=== PATIENT | male | born 1940 | race Caucasian/White ===

== ENCOUNTER 2018-12-16 12:56 | Inpatient (IN) | payer OTHER ==
[~2018-12-16] VITALS: Ht 175.3 cm; Wt 99.8 kg
[~2018-12-16 12:56] MED LIST: ALLO100T PO; ASPI-1155 PO; ATEN50TA PO; COLC0.6T67 PO; HYDR-1189 PO; LISI30TA36 PO; LISI40TA4 PO; NAPR250T PO; SIME125C PO; TRAM50TA92 PO
[2018-12-16 13:07] VITALS: BP_SYST 135
--- NOTE | 2018-12-16 14:07 | NUR ---
Placed in room 6. Placed on classroom monitor, blood pressure machine and pulse oximeter. To gown for exam. Side rails up. Report given to Karen PRESSLEY.
--- NOTE | 2018-12-16 14:08 | NUR ---
Patient presented to ER with fever, body aches and s/p fall. Patient alert and oriented, skin pink, respirations equal bilat, temp 101.1, c/o body aches, pain 8/10, denies N/V/D. Patient states he had a fall today and had difficulty gettin to standing position, patient denies hittin head, denies KO.
[2018-12-16 14:47] LABS: BILIRUBIN,URINE NEGATIVE (NEGATIVE); BLOOD, URINE 3+ (NEGATIVE); CLARITY/URINE CLEAR (CLEAR); COLOR,URINE YELLOW (YELLOW); GLUCOSE,URINE NEGATIVE (NEGATIVE); KETONES,URINE NEGATIVE (NEGATIVE); LEUKOCYTE ESTERASE ,URINE NEGATIVE (NEGATIVE); NITRITE, URINE NEGATIVE (NEGATIVE); PH,URINE 5.5 (5.0-8.0); PROTEIN URINE 2+ (NEGATIVE); UROBILINOGEN,URINE 0.2 (0.2-1.0)
[2018-12-16 14:56] LABS: BACTERIA,URINE FEW /HPF (None Seen); RBC,URINE 0-3 /HPF (0-3); WBC,URINE 0-3 /HPF (0-3)
[2018-12-16 14:57] LABS: MUCUS,URINE None Seen /LPF (None Seen)
--- NOTE | 2018-12-16 15:10 | NUR ---
ER Dr. Moyer at bedside examining patient.
--- NOTE | 2018-12-16 15:10 | NUR ---
Patient to Radiology with radiology staff
[2018-12-16 15:16] LABS: BASOPHILS # (AUTO) 0.1 K/uL (0.0-0.2); BASOPHILS % (AUTO) 0.5 % (0.0-2.0); EOSINOPHILS % (AUTO) 0.1 % (0.0-4.0); HEMATOCRIT 35.2 % (36-54); HEMOGLOBIN 11.9 g/dL (14.0-18.0); LYMPHOCYTES # (AUTO) 0.7 K/uL (1.0-5.5); LYMPHOCYTES % (AUTO) 6.5 % (20.5-51.5); MEAN CORPUSCULAR HEMOGLOBIN 33 pg (27-31); MEAN CORPUSCULAR HGB CONC 34 % (32-36); MEAN CORPUSCULAR VOLUME 98 fL (79.0-98.0); MONOCYTES # (AUTO) 0.6 K/uL (0.0-1.0); MONOCYTES % (AUTO) 5.9 % (1.7-9.3); NEUTROPHILS # (AUTO) 9.2 K/uL (1.8-7.7); PLATELET COUNT (AUTO) 173 K/uL (130-430); RED BLOOD CELL COUNT(AUTO) 3.61 MIL/uL (4.2-6.2); RED CELL DISTRIBUTION WIDTH 17.6 % (9.0-15.0); WHITE BLOOD COUNT (AUTO) 10.5 K/uL (4.8-10.8)
[2018-12-16 15:26] LABS: ALANINE AMINOTRANSFERASE 43 U/L (12-78); ALBUMIN 3.3 g/dL (3.4-4.8); ASPARTATE AMINOTRANSFERASE 200 U/L (10-37); CALCIUM 8.1 mg/dL (8.4-11.0); CHLORIDE 91 mmol/L (98-107); CREATININE 1.36 mg/dL (0.55-1.30); GLUCOSE 115 mg/dL (70-99); SODIUM SERUM 129 mmol/L (136-145); TOTAL BILIRUBIN 0.4 mg/dL (0.0-1.0); UREA NITROGEN, BLOOD 12 mg/dL (8-21)
[2018-12-16 15:38] LABS: ANION GAP 15 (5-15)
[2018-12-16] MEDS ORDERED: NACL 0.9% 2,000 ML IV ONE (16:30)
--- NOTE | 2018-12-16 16:30 | NUR ---
Patient awake & alert sitting in [facility], at bedside
[2018-12-16] MEDS ORDERED: KCL 40 mEq in 100 mL (PREMIX) 100 ML IV ONE (16:45)
[2018-12-16] MEDS ORDERED: KCL 20 mEq in 100 mL (PREMIX) 200 ML IV ONE (17:07)
--- NOTE | 2018-12-16 17:10 | NUR ---
ER Dr. Moyer at bedside examining patient.
[2018-12-16] MEDS ORDERED: KCL 20 mEq in 100 mL (PREMIX) 100 ML IV ONE (17:15)
--- NOTE | 2018-12-16 17:22 | NUR ---
ER at bedside discussing admission with patient.
--- NOTE | 2018-12-16 17:25 | NUR ---
Patient will be admitted to care of Dr. Meyers. Admitted to telemetry unit. HUAN Braxton to assign room. Belongings list completed. Summary report printed. Report will be given at bedside.
--- NOTE | 2018-12-16 17:35 | NUR ---
Medication reconciliation completed with information provided by Patient and . Any prior medication reconciliation on file was reviewed and corrected. will bring in the 2 medications patient taking.
--- NOTE | 2018-12-16 17:52 | NUR ---
ADMISSION NOTE Received patient from ER via jenna, received report from CINDY PRESSLEY. Patient admitted with diagnosis of HYPOKALEMIA/WEAKNESS. Patient oriented to hospital routine, call light, toileting and safety-patient verbalized understanding.
[2018-12-16 18:08] VITALS: BP_SYST 152
--- NOTE | 2018-12-16 18:20 | NUR ---
Physical assessment done and recorded to flow sheet , discussed to patient and disease process, plan of care , safety, verbalized understanding.
[2018-12-16] MEDS ORDERED: ALBUTEROL SULFATE 0.083% 2.5 MG/3 ML VIAL.NEB INH PRN (18:45)
[2018-12-16] MEDS ORDERED: ONDANSETRON HCL 4 MG/2 ML VIAL IVP PRN (18:45)
[2018-12-16] MEDS ORDERED: NACL 0.9% 1,000 ML IV SCH (19:00)
--- NOTE | 2018-12-16 19:10 | NUR ---
Opening notes Patient resting in bed. No signs of distress noted. Breathing even and unlabored. IV patent and intact. No needs at this time. Call light with the patient. Safety precautions in place. Family at bedside.
[2018-12-16 20:00] VITALS: BP_SYST 153
[2018-12-16] MEDS ORDERED: cefTRIAXone 1 GM IVPB PREMIX 50 ML IV SCH (20:00)
--- NOTE | 2018-12-16 20:04 | NUR ---
Patient to radiology via wheelchair. Patient in stable condition.
[2018-12-16] MEDS ORDERED: AZITHROMYCIN 500 MG/VIAL (ZITHROMAX) IV ONE (20:11)
[2018-12-16] MEDS ORDERED: cefTRIAXone 1 GM IVPB PREMIX 50 ML IV ONE (20:11)
[2018-12-16] MEDS: ACETAMINOPHEN 325 MG TABLET PO PRN (20:41)
[2018-12-16] MEDS: AZITHROMYCIN 500 MG in NS 250 ML IV SCH (20:42)
--- NOTE | 2018-12-16 20:45 | NUR ---
Tylenol given for Temp of 101.2. Educated the action and side effects of medications. Patient tolerated well.
[2018-12-16 21:27] VITALS: BP_SYST 152
[2018-12-16 21:41] VITALS: BP_SYST 151
--- NOTE | 2018-12-16 22:00 | NUR ---
Patient resting comfortably in bed. Temp is now 99.7. Cooling measures applied.
[2018-12-16 23:15] LABS: ANION GAP 10 (5-15); CALCIUM 7.5 mg/dL (8.4-11.0); CHLORIDE 100 mmol/L (98-107); CREATININE 0.92 mg/dL (0.55-1.30); GLUCOSE 112 mg/dL (70-99); SODIUM SERUM 131 mmol/L (136-145); UREA NITROGEN, BLOOD 9 mg/dL (8-21)
[2018-12-16 23:19] LABS: POTASSIUM 2.8 mmol/L (3.5-5.1)
[2018-12-16] MEDS ORDERED: POTASSIUM CHLORIDE 40 MEQ in NS 250 ML IV ONE (23:45)
[2018-12-16] MEDS ORDERED: MAGNESIUM SULFATE 50 ML IV ONE (23:45)
[2018-12-17 00:26] VITALS: BP_SYST 141
--- NOTE | 2018-12-17 00:30 | NUR ---
Sleeping No signs of distress noted. Breathing even and unlabored. IV patent and intact. Safety precautions in place. Emptied 400 ml from urinal.
[2018-12-17] MEDS ORDERED: KCL 20 mEq in 100 mL (PREMIX) 100 ML IV ONE ×2 (02:00)
--- NOTE | 2018-12-17 02:22 | NUR ---
Sleeping Patient sleeping. Easily awake. Emptied 400 ml from urinal. No other needs. Call light with the patient. Safety precautions in place.
--- NOTE | 2018-12-17 05:09 | NUR ---
IV reinserted into left forearm 22 gauge. IV flushes well. Resumed K rider.
--- NOTE | 2018-12-17 06:40 | NUR ---
Closing notes Patient asleep in bed. No signs of distress noted. Breathing is even and unlabored. IV is patent and intact. All needs met throughout the shift. Call light with the patient. Safety precautions in place. Will endorse care to day shift RN.
--- NOTE | 2018-12-17 07:50 | NUR ---
INITIAL NOTE RECEIVED PT IN BED, NO S/S OF DISTRESS OR SOB NOTED, PT HAS NO C/O PAIN AT THIS TIME, PT IN STABLE CONDITION, PT AAOX4, VERBAL. IV CATHETERS PATENT, NO SIGNS OF INFECTION OR INFILTRATION NOTED, SALINE LOCK. BED AT LOWEST POSITION, CALL LIGHT WITHIN REACH, WILL CONTINUE TO MONITOR PT FOR ANY CHANGES, FALL AND SAFETY PRECAUTIONS IN PLACE. Addendum: 12/17/18 at 0954 by Opal Frey RN PT HAS BILATERAL SCD'S IN PLACE.
[2018-12-17 07:53] LABS: ALANINE AMINOTRANSFERASE 46 U/L (12-78); ALBUMIN 2.6 g/dL (3.4-4.8); ANION GAP 11 (5-15); ASPARTATE AMINOTRANSFERASE 203 U/L (10-37); CALCIUM 7.9 mg/dL (8.4-11.0); CHLORIDE 101 mmol/L (98-107); CREATININE 0.77 mg/dL (0.55-1.30); GLUCOSE 114 mg/dL (70-99); POTASSIUM 3.2 mmol/L (3.5-5.1); SODIUM SERUM 134 mmol/L (136-145); TOTAL BILIRUBIN 0.4 mg/dL (0.0-1.0); UREA NITROGEN, BLOOD 7 mg/dL (8-21)
[2018-12-17 07:54] LABS: BASOPHILS % (AUTO) 0.6 % (0.0-2.0); EOSINOPHILS # (AUTO) 0.1 K/uL (0.0-0.4); EOSINOPHILS % (AUTO) 1.5 % (0.0-4.0); HEMATOCRIT 32.4 % (36-54); HEMOGLOBIN 10.9 g/dL (14.0-18.0); LYMPHOCYTES # (AUTO) 0.5 K/uL (1.0-5.5); LYMPHOCYTES % (AUTO) 9.1 % (20.5-51.5); MEAN CORPUSCULAR HEMOGLOBIN 33 pg (27-31); MEAN CORPUSCULAR HGB CONC 34 % (32-36); MEAN CORPUSCULAR VOLUME 97 fL (79.0-98.0); MONOCYTES # (AUTO) 0.5 K/uL (0.0-1.0); NEUTROPHILS # (AUTO) 4.8 K/uL (1.8-7.7); NEUTROPHILS % (AUTO) 80.8 % (40.0-70.0); PLATELET COUNT (AUTO) 157 K/uL (130-430); RED BLOOD CELL COUNT(AUTO) 3.34 MIL/uL (4.2-6.2); RED CELL DISTRIBUTION WIDTH 17.1 % (9.0-15.0)
[2018-12-17 08:30] VITALS: BP_SYST 132
--- NOTE | 2018-12-17 10:12 | NUR ---
Nutrition Update Dayday Scale 17 noted. Pt admitted for hypokalemia, weakness. Diet: regular BMI: 32.5 kg/m2 RD to follow per nutrition care standards.
--- NOTE | 2018-12-17 10:52 | NUR ---
ROUNDS PT IN BED, NO S/S OF DISTRESS OR SOB NOTED, PT HAS NO C/O PAIN AT THIS TIME, PT IN STABLE CONDITION, PT TALKING TO VISITOR AT BEDSIDE, WILL CONTINUE TO MONITOR PT FOR ANY CHANGES.
--- NOTE | 2018-12-17 11:25 | NUR ---
FEVER PT HAS A TEMPERATURE OF 102.3, ADMINISTERED PRN TYLENOL AND COOLING MEASURES IN PLACE, WILL CONTINUE TO MONITOR PT FOR ANY CHANGES. Addendum: 12/17/18 at 1315 by Opal Frey RN 1245 temp is now 99.1
[2018-12-17] MEDS: ACETAMINOPHEN 325 MG TABLET PO PRN ×2 (11:27→17:38)
[2018-12-17 13:39] VITALS: BP_SYST 144
--- NOTE | 2018-12-17 14:47 | NUR ---
ROUNDS PT IN BED, NO S/S OF DISTRESS OR SOB NOTED, PT HAS NO C/O PAIN AT THIS TIME, PT IN STABLE CONDITION, PT RESTING COMFORTABLY, WILL CONTINUE TO MONITOR PT FOR ANY CHANGES.
--- NOTE | 2018-12-17 15:23 | NUR ---
CALL DR ACE BOONE, AWAITING CALL BACK. TO LET HIM KNOW PT IS HAVING FEVERS 102.3 AND LAST NIGHT 101.5, PULSE 93, WBC 6.0. CALLED BACK AND GAVE NEW ORDERS FOR URINE CULTURE AND BC X2. Addendum: 12/18/18 at 0804 by Opal Frey RN PER NO NEED TO FOLLOW SEPSIS PROTOCOL
[2018-12-17 15:59] LABS: BILIRUBIN,URINE NEGATIVE (NEGATIVE); BLOOD, URINE 2+ (NEGATIVE); CLARITY/URINE CLEAR (CLEAR); COLOR,URINE YELLOW (YELLOW); GLUCOSE,URINE NEGATIVE (NEGATIVE); KETONES,URINE NEGATIVE (NEGATIVE); LEUKOCYTE ESTERASE ,URINE NEGATIVE (NEGATIVE); NITRITE, URINE NEGATIVE (NEGATIVE); PROTEIN URINE TRACE (NEGATIVE); UROBILINOGEN,URINE 0.2 (0.2-1.0)
[2018-12-17 16:09] LABS: BACTERIA,URINE FEW /HPF (None Seen); WBC,URINE 0-3 /HPF (0-3)
[2018-12-17 16:14] VITALS: BP_SYST 149
--- NOTE | 2018-12-17 16:47 | NUR ---
AMBULATION PT AMBULATING WITH FAMILY AT BEDSIDE, STEADY GAIT.
[2018-12-17] MEDS: PIPERACILLIN/TAZO 3.375/DEX-IS 50 ML IV SCH (18:01)
[2018-12-17] MEDS: AZITHROMYCIN 500 MG in NS 250 ML IV SCH (18:41)
--- NOTE | 2018-12-17 18:45 | NUR ---
CLOSING NOTE PT IN BED, NO S/S OF DISTRESS OR SOB NOTED, PT HAS NO C/O PAIN AT THIS TIME, PT IN STABLE CONDITION, PT AAOX4, VERBAL. IV CATHETERS PATENT, NO SIGNS OF INFECTION OR INFILTRATION NOTED, SALINE LOCK. BED AT LOWEST POSITION, CALL LIGHT WITHIN REACH, WILL ENDORSE CARE OF PT TO INCOMING NURSE, FALL AND SAFETY PRECAUTIONS IN PLACE. PT HAS BILATERAL SCD'S IN PLACE. PT AFEBRILE AT THIS TIME, 98.6.
--- NOTE | 2018-12-17 19:34 | NUR ---
paged paged doctor darlin who is stone[facility] for [facility].
--- NOTE | 2018-12-17 19:45 | NUR ---
Opening notes Patient resting comfortably in bed. Family is concerned about patient's temperature and patient's pain. Spoke with Dr. Grider and new orders for pain meds inputted. Per MD, no additional medication for fever. Give Tylenol and apply cooling measures.
[2018-12-17 20:00] VITALS: BP_SYST 153
--- NOTE | 2018-12-17 21:30 | NUR ---
Medications given. Educated the action and side effects of medications. Patient verbalized understanding and tolerated well. No signs of allergic reaction noted.
[2018-12-17] MEDS: IBUPROFEN 800 MG TABLET PO SCH (21:31)
[2018-12-17 23:14] VITALS: BP_SYST 153
--- NOTE | 2018-12-17 23:30 | NUR ---
Resting Patient resting comfortably in bed. No signs of distress noted. Breathing even and unlabored. Bilateral SCDs placed. No other needs. Call light with the patient. Safety precautions in place.
[2018-12-18] MEDS: PIPERACILLIN/TAZO 3.375/DEX-IS 50 ML IV SCH ×3 (00:23→11:23)
--- NOTE | 2018-12-18 02:46 | NUR ---
Sleeping No signs of distress noted. Breathing even and unlabored. Call light with the patient. Safety precautions in place.
--- NOTE | 2018-12-18 04:57 | NUR ---
Ambulated to bathroom with minimal assistance. Patient voided. Patient back in bed. Patient gown wet, provided new gown. Call light with the patient. Safety precautions in place. Addendum: 12/18/18 at 0500 by Natalie Johnston RN Patient temp 97.9 at this time.
[2018-12-18 06:26] LABS: BASOPHILS % (AUTO) 0.6 % (0.0-2.0); EOSINOPHILS # (AUTO) 0.4 K/uL (0.0-0.4); EOSINOPHILS % (AUTO) 7.7 % (0.0-4.0); HEMATOCRIT 32.2 % (36-54); HEMOGLOBIN 10.8 g/dL (14.0-18.0); LYMPHOCYTES # (AUTO) 0.6 K/uL (1.0-5.5); LYMPHOCYTES % (AUTO) 12.6 % (20.5-51.5); MEAN CORPUSCULAR HEMOGLOBIN 33 pg (27-31); MEAN CORPUSCULAR HGB CONC 34 % (32-36); MEAN CORPUSCULAR VOLUME 98 fL (79.0-98.0); MONOCYTES # (AUTO) 0.5 K/uL (0.0-1.0); MONOCYTES % (AUTO) 10.1 % (1.7-9.3); NEUTROPHILS # (AUTO) 3.5 K/uL (1.8-7.7); PLATELET COUNT (AUTO) 175 K/uL (130-430); RED BLOOD CELL COUNT(AUTO) 3.29 MIL/uL (4.2-6.2); RED CELL DISTRIBUTION WIDTH 16.8 % (9.0-15.0); WHITE BLOOD COUNT (AUTO) 5.1 K/uL (4.8-10.8)
[2018-12-18 06:43] LABS: ALANINE AMINOTRANSFERASE 71 U/L (12-78); ALBUMIN 2.7 g/dL (3.4-4.8); ANION GAP 12 (5-15); ASPARTATE AMINOTRANSFERASE 240 U/L (10-37); CALCIUM 8.3 mg/dL (8.4-11.0); CHLORIDE 104 mmol/L (98-107); CREATININE 0.77 mg/dL (0.55-1.30); GLUCOSE 115 mg/dL (70-99); SODIUM SERUM 139 mmol/L (136-145); TOTAL BILIRUBIN 0.5 mg/dL (0.0-1.0); UREA NITROGEN, BLOOD 6 mg/dL (8-21)
--- NOTE | 2018-12-18 06:47 | NUR ---
Closing notes IV to left forearm was removed. Catheter tip is intact and discarded. Resumed antibiotics on RAC IV. No signs of distress noted. Breathing is even and unlabored. All needs met throughout the shift. Call light with the patient. Safety precautions in place. Will endorse care to day shift RN.
--- NOTE | 2018-12-18 07:45 | NUR ---
INITIAL NOTE RECEIVED PT IN BED, NO S/S OF DISTRESS OR SOB NOTED, PT HAS NO C/O PAIN AT THIS TIME, PT IN STABLE CONDITION, PT AAOX4, VERBAL. IV CATHETER PATENT, NO SIGNS OF INFECTION OR INFILTRATION NOTED, SALINE LOCK. BED AT LOWEST POSITION, CALL LIGHT WITHIN REACH, WILL CONTINUE TO MONITOR PT FOR ANY CHANGES, FALL AND SAFETY PRECAUTIONS IN PLACE. PT HAS BILATERAL SCD'S IN PLACE. PT AFEBRILE.
[2018-12-18 07:54] VITALS: BP_SYST 142
[2018-12-18] MEDS: IBUPROFEN 800 MG TABLET PO SCH ×2 (08:37→15:00)
--- NOTE | 2018-12-18 09:30 | NUR ---
MD ROUNDS DR ACE KRUEGER, AWARE OF PATIENT'S CONDITION, MADE AWARE OF PATIENT'S POTASSIUM AND RECENT FEVERS, NEW ORDERS GIVEN.
--- NOTE | 2018-12-18 09:30 | NUR ---
ID consult called: for Dr. Pat, regarding fevers, ordered by DR. Grider, spoke with Shabnam.
[2018-12-18] MEDS ORDERED: POTASSIUM CHLORIDE 20 MEQ TAB.PRT.SR PO ONE (09:45)
--- NOTE | 2018-12-18 10:25 | NUR ---
ROUNDS PT IN BED, NO S/S OF DISTRESS OR SOB NOTED, PT HAS NO C/O PAIN AT THIS TIME, PT IN STABLE CONDITION, PT WATCHING TV, WILL CONTINUE TO MONITOR PT FOR ANY CHANGES.
--- NOTE | 2018-12-18 11:50 | NUR ---
MD ROUNDS DR RUTHANN KRUEGER AWARE OF PATIENT'S CONDITION.
--- NOTE | 2018-12-18 12:05 | NUR ---
ROUNDS PT IN BED, NO S/S OF DISTRESS OR SOB NOTED, PT HAS NO C/O PAIN AT THIS TIME, PT IN STABLE CONDITION, PT WATCHING TV AND TALKING TO FAMILY AT BEDSIDE, WILL CONTINUE TO MONITOR PT FOR ANY CHANGES.
[2018-12-18 12:40] VITALS: BP_SYST 153
[2018-12-18 16:31] VITALS: BP_SYST 146
[2018-12-18] MEDS ORDERED: AMOX-426 PO (16:35)
[2018-12-18] MEDS ORDERED: OSEL75CA PO (16:35)
[2018-12-18 16:42] VITALS: BP_SYST 147
--- NOTE | 2018-12-18 17:20 | NUR ---
D/C Patient Patient given medication reconciliation form and D/C instructions. Exit Care provided. Patient verbalized understanding. MD discussed with patient the results and treatment provided. Ambulatory with steady gait for discharge to home. Patient in stable condition, ID band removed. IV catheter removed, intact and dressing applied, no active bleeding. Rx of augmentin and tamiflu given. Patient educated on pain management. All belongings sent with patient.
== END 2018-12-18 17:20 | disposition home or self-care (01) | DRG 640 ==
LOC: SED 12:56 → STU 17:20 → SMU 12-17 12:25
PROVIDERS: ADMIT Internal Medicine; ATTEND Internal Medicine
DX: E87.1 Hypo-osmolality and hyponatremia (principal); J12.9 Viral pneumonia, unspecified; N39.0 Urinary tract infection, site not specified; E87.2 Acidosis; E87.6 Hypokalemia; I10 Essential (primary) hypertension; N19 Unspecified kidney failure; M10.9 Gout, unspecified; W19.XXXA Unspecified fall, initial encounter; Y93.89 Activity, other specified; Y92.89 Other specified places as the place of occurrence of the external cause; Y99.8 Other external cause status; Z82.49 Family history of ischemic heart disease and other diseases of the circulatory system; Z79.82 Long term (current) use of aspirin; Z79.899 Other long term (current) drug therapy
CPT/HCPCS: 36415; 70450-TC; 71046-TC; 72125-TC; 80048; 80053; 81000-TC; 83605; 83735-TC; 84484; 85025; 85610-TC; 85730-TC; 86635; 86710; 87040-TC; 87086; 93005; 93306; 96365; 99285; G0378; J0456; J0696; J2543; J3475; J3480; J7030; J7050

== ENCOUNTER 2020-12-04 06:14 | Emergency (ER) | payer OTHER ==
[~2020-12-04] VITALS: Ht 175.3 cm; Wt 95.3 kg
[~2020-12-04 06:14] MED LIST changes: -ALLO100T PO; +AMOX-426 PO; -ASPI-1155 PO; -ATEN50TA PO; -COLC0.6T67 PO; -HYDR-1189 PO; -LISI30TA36 PO; -LISI40TA4 PO; -NAPR250T PO; +OSEL75CA PO; -SIME125C PO; -TRAM50TA92 PO
[2020-12-04 06:25] VITALS: BP_SYST 157
[2020-12-04 06:47] LABS: BLOOD, URINE NEGATIVE (NEGATIVE); GLUCOSE,URINE NEGATIVE (NEGATIVE); KETONES,URINE TRACE (NEGATIVE); LEUKOCYTE ESTERASE ,URINE NEGATIVE (NEGATIVE); PROTEIN URINE 1+ (NEGATIVE)
[2020-12-04 06:48] LABS: BASOPHILS # (AUTO) 0.1 K/uL (0.0-0.2); BASOPHILS % (AUTO) 1.2 % (0.0-2.0); EOSINOPHILS # (AUTO) 0.6 K/uL (0.0-0.4); EOSINOPHILS % (AUTO) 8.8 % (0.0-4.0); HEMATOCRIT 34.8 % (36-54); HEMOGLOBIN 11.7 g/dL (14.0-18.0); LYMPHOCYTES # (AUTO) 1.3 K/uL (1.0-5.5); LYMPHOCYTES % (AUTO) 19.5 % (20.5-51.5); MEAN CORPUSCULAR HEMOGLOBIN 33 pg (27-31); MEAN CORPUSCULAR HGB CONC 34 % (32-36); MEAN CORPUSCULAR VOLUME 99 fL (79.0-98.0); MONOCYTES # (AUTO) 0.4 K/uL (0.0-1.0); MONOCYTES % (AUTO) 6.7 % (1.7-9.3); NEUTROPHILS # (AUTO) 4.3 K/uL (1.8-7.7); NEUTROPHILS % (AUTO) 63.8 % (40.0-70.0); PLATELET COUNT (AUTO) 271 K/uL (130-430); RED BLOOD CELL COUNT(AUTO) 3.51 MIL/uL (4.2-6.2); RED CELL DISTRIBUTION WIDTH 17.4 % (9.0-15.0); WHITE BLOOD COUNT (AUTO) 6.7 K/uL (4.8-10.8)
[2020-12-04 07:02] LABS: CLARITY/URINE SLIGHTLY HAZY (CLEAR); COLOR,URINE ORANGE (YELLOW)
[2020-12-04 07:15] LABS: ANION GAP 10 (5-15); CALCIUM 8.8 mg/dL (8.4-11.0); CHLORIDE 103 mmol/L (98-107); CREATININE 0.88 mg/dL (0.55-1.30); GLUCOSE 132 mg/dL (70-99); POTASSIUM 3.3 mmol/L (3.5-5.1); SODIUM SERUM 142 mmol/L (136-145); UREA NITROGEN, BLOOD 6 mg/dL (8-21)
[2020-12-04 07:17] LABS: PROTHROMBIN TIME 10.3 SECS (9.5-12.5)
[2020-12-04 07:20] LABS: BACTERIA,URINE FEW /HPF (None Seen); BILIRUBIN,URINE 3+ (NEGATIVE); RBC,URINE 0-3 /HPF (0-3); WBC,URINE 0-3 /HPF (0-3)
[2020-12-04 07:21] LABS: ALANINE AMINOTRANSFERASE 352 U/L (12-78); ALBUMIN 3.5 g/dL (3.4-4.8); AMYLASE 20 U/L (0-100); ASPARTATE AMINOTRANSFERASE 381 U/L (10-37); LACTATE DEHYDROGENASE 303 U/L (85-227); LIPASE 42 U/L (73-393)
[2020-12-04 07:21] LABS: NITRITE, URINE POSITIVE (NEGATIVE)
[2020-12-04 07:22] LABS: TOTAL BILIRUBIN 7.7 mg/dL (0.0-1.0)
[2020-12-04] MEDS ORDERED: cefTRIAXone 1 GM in LIDOCAINE 1%, 20 ML MDV 2.1 ML IM ONE (08:15)
[2020-12-04] MEDS ORDERED: cefTRIAXone 1 GM VIAL IM ONE (08:30)
[2020-12-04] MEDS ORDERED: NITR-85 PO (08:34)
[2020-12-04] MEDS ORDERED: FLEETMO RC (08:34)
[2020-12-04] MEDS ORDERED: MAGN296S30 PO (08:34)
[2020-12-04 08:42] VITALS: BP_SYST 151
[2020-12-04] MEDS ORDERED: cefTRIAXone 1 GM IVPB PREMIX 50 ML IV ONE (08:45)
== END 2020-12-04 08:45 | disposition home or self-care (01) ==
LOC: SED 06:14
DX: K59.00 Constipation, unspecified (principal); N39.0 Urinary tract infection, site not specified; I10 Essential (primary) hypertension; Z88.5 Allergy status to narcotic agent
CPT/HCPCS: 36415; 74176; 76376; 80053; 81000; 82150; 83605; 83615; 83690; 84484; 85025; 85610; 85730; 87040; 96365; 99284; J0696

== ENCOUNTER 2020-12-06 14:21 | Inpatient (IN) | payer OTHER, SELFPAY ==
[~2020-12-06] VITALS: Ht 175.3 cm; Wt 94.8 kg
[~2020-12-06 14:21] MED LIST changes: -AMOX-426 PO; +FLEETMO RC; +GLUCAGON,HUMAN RECOMBINANT 1 MG VIAL IVP ONE; +LR 1,000 ML IV.SOLN IV ONE; +MAGN296S30 PO; +NITR-85 PO; +NS IRRIG SOLN 1000 ML IR ONE; -OSEL75CA PO; +PROPOFOL 200MG/ 20ML VIAL (DIPRIVAN) IV ONE; +ROCURONIUM BROMIDE 10 MG/ML (ZEMURON) IV ONE; +SEVOFLURANE 15 MIN GAS INH ONE; +WATER FOR IRRIGATION,STERILE 1,000 ML IRRIG.SOLN IR ONE
[2020-12-06 14:36] VITALS: BP_SYST 160
--- NOTE | 2020-12-06 14:36 | NUR ---
Patient to ER bed 08 to gown for evaluation. Side rails up.
--- NOTE | 2020-12-06 14:38 | NUR ---
Pt brought by self, A&Ox4, pt presents to ER with upper abdominal pain, nausea, constipation,skin pink and warm, cap refill <3, VSS, will cont to monitor.
--- NOTE | 2020-12-06 14:50 | NUR ---
Dr Redman evaluating patient at bedside
--- NOTE | 2020-12-06 14:50 | NUR ---
Jeromy collado in ED - 12/06/20 at [email or web address] Rivas evaluating patient at bedside
[2020-12-06 14:53] LABS: BASOPHILS # (AUTO) 0.1 K/uL (0.0-0.2); EOSINOPHILS # (AUTO) 0.3 K/uL (0.0-0.4); EOSINOPHILS % (AUTO) 4.4 % (0.0-4.0); HEMATOCRIT 33.9 % (36-54); HEMOGLOBIN 11.6 g/dL (14.0-18.0); LYMPHOCYTES # (AUTO) 1.4 K/uL (1.0-5.5); LYMPHOCYTES % (AUTO) 20.2 % (20.5-51.5); MEAN CORPUSCULAR HEMOGLOBIN 34 pg (27-31); MEAN CORPUSCULAR HGB CONC 34 % (32-36); MEAN CORPUSCULAR VOLUME 99 fL (79.0-98.0); MONOCYTES # (AUTO) 0.6 K/uL (0.0-1.0); MONOCYTES % (AUTO) 8.9 % (1.7-9.3); NEUTROPHILS # (AUTO) 4.5 K/uL (1.8-7.7); NEUTROPHILS % (AUTO) 65.5 % (40.0-70.0); PLATELET COUNT (AUTO) 271 K/uL (130-430); RED BLOOD CELL COUNT(AUTO) 3.42 MIL/uL (4.2-6.2); RED CELL DISTRIBUTION WIDTH 18.3 % (9.0-15.0); WHITE BLOOD COUNT (AUTO) 6.9 K/uL (4.8-10.8)
[2020-12-06 15:06] LABS: ANION GAP 8 (5-15); CALCIUM 8.8 mg/dL (8.4-11.0); CHLORIDE 99 mmol/L (98-107); CREATININE 0.83 mg/dL (0.55-1.30); GLUCOSE 107 mg/dL (70-99); POTASSIUM 3.2 mmol/L (3.5-5.1); SODIUM SERUM 138 mmol/L (136-145); UREA NITROGEN, BLOOD 7 mg/dL (8-21)
[2020-12-06 15:15] LABS: ALANINE AMINOTRANSFERASE 420 U/L (12-78); ALBUMIN 3.5 g/dL (3.4-4.8); ASPARTATE AMINOTRANSFERASE 387 U/L (10-37); BILIRUBIN,DIRECT 6.6 mg/dL (0.0-0.3); LIPASE 55 U/L (73-393)
[2020-12-06 15:19] LABS: TOTAL BILIRUBIN 8.2 mg/dL (0.0-1.0)
[2020-12-06 15:28] LABS: PROTHROMBIN TIME 10.6 SECS (9.5-12.5)
--- NOTE | 2020-12-06 15:30 | NUR ---
Pt A&Ox4, VSS, respirations even and unlabored
[2020-12-06] MEDS ORDERED: LR 1,000 ML IV ONE (16:00)
[2020-12-06] MEDS ORDERED: MORPHINE 2 MG/ML INJ. SYRINGE IVP ONE (16:00)
[2020-12-06] MEDS ORDERED: ONDANSETRON HCL 4 MG/2 ML VIAL IVP PRN (17:00)
[2020-12-06] MEDS ORDERED: LORazepam 2 MG/ML VIAL IVP PRN (17:00)
[2020-12-06] MEDS ORDERED: NALOXONE HCL 0.4 MG/ML AMP (NARCAN) IVP PRN (17:00)
[2020-12-06] MEDS ORDERED: MAGNESIUM CITRATE 300 ML ORAL SOLUTION PO PRN (17:00)
[2020-12-06] MEDS ORDERED: MINERAL OIL 133 ML ENEMA RC PRN (17:00)
--- NOTE | 2020-12-06 17:02 | NUR ---
US at bedside
--- NOTE | 2020-12-06 17:10 | NUR ---
Pt admitted to the floor at this time, Lactated Ringers start time 1610, unknown ending time.
--- NOTE | 2020-12-06 17:19 | NUR ---
Patient will be admitted to care of Dr Torrez . Admitted to Medsurg unit. Will go to room 106A. Belongings list completed. Complete and up to date summary report printed. SBAR report to be given at bedside with opportunity for questions.
--- NOTE | 2020-12-06 17:28 | NUR ---
CONSULTATION PAGED/CALLED Reason for Consultation: [] ABDOMINAL PAIN/ELEVATED LFT Person Who was Notified: [] [place] Consulting Physician: [] DR ORDONEZ DEBEADER FOR DR ONTIVEROS Syrup Shed Supervisor Specialty: [] GI Ordering Physician: [] DR GAY
[2020-12-06] MEDS ORDERED: ALLO100T PO (17:30)
[2020-12-06] MEDS ORDERED: AMLO2.5T2 PO (17:30)
[2020-12-06 17:40] VITALS: BP_SYST 175
--- NOTE | 2020-12-06 18:17 | NUR ---
initial note patient is awake alert and oriented, on room air, breathing even, pulse regular, stable. patient is ambulatory, gets up use the bathroom by himself. encouraged patient to use the call light for assistance. updated patient about his plan of care, and informed him that he has PRN medication for abd discomfort and constipation . educated patient regrading NPO, and encourage patient to rest. call light in reach, safety maintained. patient still needs med reconcil, waiting for to bring the list of medication. will endorse and follow up on material handler 1st shift
[2020-12-06] MEDS: D5/0.45 NS 1,000 ML IV SCH (18:29)
--- NOTE | 2020-12-06 19:30 | NUR ---
Opening note: Patient is awake alert and oriented, on room air, breathing even and unlabored. Pt aware he is NPO. Pt ambulates to restroom steadily. IV on LAC #20 patent and infusing ordered IV fluid. Safety and fall precautions in place. Call light with patient. Will continue to monitor.
[2020-12-06 20:00] VITALS: BP_SYST 154
--- NOTE | 2020-12-06 20:37 | NUR ---
RN Rounds Pt vital signs stable. Pt request for laxative medication. Pt tolerated medication.
[2020-12-06] MEDS: NITROFURANTOIN MONOHYD/M-CRYST 100 MG CAPSULE (MacroBID) PO SCH (20:41)
[2020-12-06] MEDS ORDERED: POTASSIUM CHLORIDE 20 MEQ TAB.PRT.SR PO ONE (23:00)
--- NOTE | 2020-12-06 23:00 | NUR ---
Spoke to Dr Meyers regarding pt low K. rcvd orders. will carry out
--- NOTE | 2020-12-06 23:02 | NUR ---
HIGH ALERT NOTE: Called Dr. GABRIEL back at [phone] identified within the medical roster to verify physician authenticity.
[2020-12-06 23:55] LABS: BILIRUBIN,URINE 3+ (NEGATIVE); BLOOD, URINE NEGATIVE (NEGATIVE); CLARITY/URINE CLEAR (CLEAR); COLOR,URINE YELLOW (YELLOW); GLUCOSE,URINE NEGATIVE (NEGATIVE); KETONES,URINE NEGATIVE (NEGATIVE); LEUKOCYTE ESTERASE ,URINE NEGATIVE (NEGATIVE); NITRITE, URINE NEGATIVE (NEGATIVE); PROTEIN URINE TRACE (NEGATIVE); UROBILINOGEN,URINE 0.2 (0.2-1.0)
[2020-12-07] VITALS: BP_SYST 159
--- NOTE | 2020-12-07 | NUR ---
RN Rounds Pt vital signs stable. Will ctm.
[2020-12-07] MEDS: D5/0.45 NS 1,000 ML IV SCH ×3 (03:49→15:49)
[2020-12-07 07:01] LABS: BASOPHILS # (AUTO) 0.1 K/uL (0.0-0.2); BASOPHILS % (AUTO) 1.1 % (0.0-2.0); EOSINOPHILS # (AUTO) 0.3 K/uL (0.0-0.4); EOSINOPHILS % (AUTO) 4.3 % (0.0-4.0); HEMATOCRIT 33.7 % (36-54); HEMOGLOBIN 11.4 g/dL (14.0-18.0); LYMPHOCYTES # (AUTO) 1.4 K/uL (1.0-5.5); LYMPHOCYTES % (AUTO) 20.9 % (20.5-51.5); MEAN CORPUSCULAR HEMOGLOBIN 34 pg (27-31); MEAN CORPUSCULAR HGB CONC 34 % (32-36); MEAN CORPUSCULAR VOLUME 99 fL (79.0-98.0); MONOCYTES # (AUTO) 0.7 K/uL (0.0-1.0); MONOCYTES % (AUTO) 10.1 % (1.7-9.3); NEUTROPHILS # (AUTO) 4.1 K/uL (1.8-7.7); NEUTROPHILS % (AUTO) 63.6 % (40.0-70.0); PLATELET COUNT (AUTO) 274 K/uL (130-430); RED BLOOD CELL COUNT(AUTO) 3.41 MIL/uL (4.2-6.2); RED CELL DISTRIBUTION WIDTH 17.9 % (9.0-15.0); WHITE BLOOD COUNT (AUTO) 6.5 K/uL (4.8-10.8)
--- NOTE | 2020-12-07 07:18 | NUR ---
Closing note: Patient is awake alert and oriented, on room air, breathing even and unlabored. Pt ambulates to restroom steadily. IV on LAC #20 patent and infusing ordered IV fluid. Safety and fall precautions in place. Call light with patient. Will continue to monitor.
[2020-12-07 07:56] LABS: ALANINE AMINOTRANSFERASE 406 U/L (12-78); ALBUMIN 3.2 g/dL (3.4-4.8); ANION GAP 9 (5-15); ASPARTATE AMINOTRANSFERASE 351 U/L (10-37); CALCIUM 8.7 mg/dL (8.4-11.0); CHLORIDE 99 mmol/L (98-107); CREATININE 0.76 mg/dL (0.55-1.30); GLUCOSE 143 mg/dL (70-99); POTASSIUM 3.1 mmol/L (3.5-5.1); SODIUM SERUM 137 mmol/L (136-145); TOTAL BILIRUBIN 8.1 mg/dL (0.0-1.0); UREA NITROGEN, BLOOD 5 mg/dL (8-21)
[2020-12-07 08:00] VITALS: BP_SYST 143
--- NOTE | 2020-12-07 08:00 | NUR ---
Patient is awake alert and oriented, on room air, breathing even and unlabored. Vitals signs WNL. Pt ambulates to restroom steadily. IV on LAC #20 patent and infusing ordered IV fluid. Safety and fall precautions in place. Call light with patient. Will continue to monitor.
--- NOTE | 2020-12-07 10:30 | NUR ---
PT to CT via WC
--- NOTE | 2020-12-07 11:05 | NUR ---
PT to MRI via
[2020-12-07] MEDS: NITROFURANTOIN MONOHYD/M-CRYST 100 MG CAPSULE (MacroBID) PO SCH ×2 (12:44→21:21)
[2020-12-07] MEDS: MORPHINE 4 MG INJ. 4 MG/ML VIAL IVP PRN ×3 (12:46→22:15)
[2020-12-07 12:53] VITALS: BP_SYST 162
[2020-12-07] MEDS ORDERED: amLODIPine BESYLATE 5 MG TABLET PO ONE (14:15)
[2020-12-07] MEDS ORDERED: ENALAPRILAT DIHYDRATE 1.25 MG/ML VIAL IVP PRN (14:15)
[2020-12-07] MEDS ORDERED: cloNIDine HCL 0.1 MG TABLET PO PRN (14:15)
[2020-12-07] MEDS: hydrALAZINE HCL 20 MG/ML VIAL IVP PRN (15:52)
[2020-12-07 16:05] VITALS: BP_SYST 176
[2020-12-07 16:39] VITALS: BP_SYST 169
[2020-12-07] MEDS ORDERED: POTASSIUM CHLORIDE 20 MEQ TAB.PRT.SR PO ONE (17:45)
--- NOTE | 2020-12-07 17:45 | NUR ---
HIGH ALERT NOTE: Called Dr. Verma back at identified within the medical roster to verify physician authenticity.
--- NOTE | 2020-12-07 18:42 | NUR ---
Patient is awake alert and oriented, on room air, breathing even and unlabored, talking on phone. Pt ambulates to restroom steadily. IV on LAC #20 patent and infusing ordered IV fluid. Safety and fall precautions in place. Call light with patient. Will endorse to retanner
--- NOTE | 2020-12-07 19:15 | NUR ---
OPENING NOTES Patient resting in bed - no s/s pain or distress noted. respirations even and unlabored - head of bed elevated. IV site patent - no s/s redness, infection, or infiltration. Bed locked and in lowest position. Call light within reach.
[2020-12-07 20:00] VITALS: BP_SYST 146
--- NOTE | 2020-12-07 20:00 | NUR ---
HOURLY ROUNDING Patient resting in bed - no s/s pain or distress noted. respirations even and unlabored - head of bed elevated. IV site patent - no s/s redness, infection, or infiltration. Bed locked and in lowest position. Call light within reach.
[2020-12-08 00:44] VITALS: BP_SYST 139
[2020-12-08] MEDS: D5/0.45 NS 1,000 ML IV SCH ×2 (02:28→15:41)
[2020-12-08] MEDS: MORPHINE 4 MG INJ. 4 MG/ML VIAL IVP PRN ×3 (06:40→22:02)
--- NOTE | 2020-12-08 07:25 | NUR ---
OPENING NOTES: RECEIVED REPORT FROM CASHIER ASSISTANT NURSE. PATIENT IS ASLEEP LAYING DOWN IN BED. TOLERATED OXYGEN ON ROOM AIR WITH NO DISTRESS NOTED. IV LINE PATENT AND INTACT WITH NO INFILTRATION NOTED. PATIENT IN STABLE CONDITION. SAFETY, FALL, AND ASPIRATION PRECAUTIONS ARE IN PLACE. BED LOCKED IN LOWEST POSITION AND CALL LIGHT IN REACH. WILL CONTINUE TO MONITOR PATIENT FOR ANY CHANGES.
[2020-12-08 08:00] VITALS: BP_SYST 150
[2020-12-08 08:07] LABS: HEPATITIS A AB, IgM Negative (Negative); HEPATITIS B CORE AB, IgM Negative (Negative); HEPATITIS B SURFACE AG Negative (Negative)
[2020-12-08] MEDS: NITROFURANTOIN MONOHYD/M-CRYST 100 MG CAPSULE (MacroBID) PO SCH ×2 (08:21→20:22)
[2020-12-08] MEDS: amLODIPine BESYLATE 5 MG TABLET PO SCH (08:21)
[2020-12-08 12:37] VITALS: BP_SYST 154
--- NOTE | 2020-12-08 12:37 | NUR ---
PATIENT WENT TO RADIOLOGY FOR HIDA SCAN. AWAITING TO COME BACK.
--- NOTE | 2020-12-08 14:45 | NUR ---
PATIENT BACK IN ROOM
[2020-12-08 16:20] VITALS: BP_SYST 154
--- NOTE | 2020-12-08 19:21 | NUR ---
CLOSING NOTES: PATIENT IS ASLEEP LAYING DOWN IN BED. TOLERATED OXYGEN ON ROOM AIR WITH NO DISTRESS NOTED. IV LINE PATENT AND INTACT WITH NO INFILTRATION NOTED. PATIENT IN STABLE CONDITION. SAFETY, FALL, AND ASPIRATION PRECAUTIONS REMAINED IN PLACE. BED LOCKED IN LOWEST POSITION AND CALL LIGHT IN REACH. WILL ENDORSE PATIENT CARE TO ONCOMING INSTRUCTIONAL TECHNOLOGY COACH NURSE.
[2020-12-08 20:00] VITALS: BP_SYST 154
[2020-12-08] MEDS: hydrALAZINE HCL 20 MG/ML VIAL IVP PRN (23:42)
[2020-12-09 00:13] VITALS: BP_SYST 157
[2020-12-09] MEDS: D5/0.45 NS 1,000 ML IV SCH ×3 (02:16→21:02)
[2020-12-09 06:44] LABS: INR 1.1 (0.80-1.20); PROTHROMBIN TIME 11.1 SECS (9.5-12.5)
[2020-12-09] MEDS ORDERED: INDOMETHACIN 50 MG SUPP.RECT RC ONE (07:15)
--- NOTE | 2020-12-09 07:30 | NUR ---
ASSUMPTION OF CARE: RECEIVED PT ASLEEP, ABLE TO AROUSE VIA VERBAL STIMULI, DX: ABDOMINAL PAIN, ELEVATED LFT, AFEBRILE, VSS, NO S/S OF DISTRESS, BREATH SOUNDS ARE CLEAR, BREATHING UNLABORED, SATURATING 97% ORA, NO C/O PAIN OR DISCOMFORT, IV SITE INTACT, PATENT, NO REDNESS OR SWELLING, REMAINS NPO FOR SCHEDULED (ERCP), ORIENTED TO UNIT, CALL LIGHT PLACED WITHIN REACH, WILL CONT' TO MONITOR AND ASSESS.
[2020-12-09 08:11] VITALS: BP_SYST 156
[2020-12-09] MEDS: amLODIPine BESYLATE 5 MG TABLET PO SCH (09:00)
[2020-12-09] MEDS: NITROFURANTOIN MONOHYD/M-CRYST 100 MG CAPSULE (MacroBID) PO SCH ×2 (09:00→21:02)
[2020-12-09 09:08] LABS: INR 1.1 (0.80-1.20); PROTHROMBIN TIME 11.1 SECS (9.5-12.5)
[2020-12-09 09:14] LABS: ALANINE AMINOTRANSFERASE 255 U/L (12-78); ALBUMIN 3.2 g/dL (3.4-4.8); ANION GAP 12 (5-15); ASPARTATE AMINOTRANSFERASE 114 U/L (10-37); CALCIUM 8.6 mg/dL (8.4-11.0); CHLORIDE 99 mmol/L (98-107); CREATININE 0.69 mg/dL (0.55-1.30); GLUCOSE 123 mg/dL (70-99); POTASSIUM 3.2 mmol/L (3.5-5.1); SODIUM SERUM 136 mmol/L (136-145); UREA NITROGEN, BLOOD 6 mg/dL (8-21)
[2020-12-09 09:17] LABS: BASOPHILS % (AUTO) 0.7 % (0.0-2.0); EOSINOPHILS # (AUTO) 0.4 K/uL (0.0-0.4); EOSINOPHILS % (AUTO) 5.5 % (0.0-4.0); HEMATOCRIT 32.8 % (36-54); HEMOGLOBIN 11.1 g/dL (14.0-18.0); LYMPHOCYTES # (AUTO) 1.3 K/uL (1.0-5.5); LYMPHOCYTES % (AUTO) 18.7 % (20.5-51.5); MEAN CORPUSCULAR HEMOGLOBIN 34 pg (27-31); MEAN CORPUSCULAR HGB CONC 34 % (32-36); MEAN CORPUSCULAR VOLUME 100 fL (79.0-98.0); MONOCYTES # (AUTO) 0.8 K/uL (0.0-1.0); MONOCYTES % (AUTO) 12.2 % (1.7-9.3); NEUTROPHILS # (AUTO) 4.2 K/uL (1.8-7.7); NEUTROPHILS % (AUTO) 62.9 % (40.0-70.0); PLATELET COUNT (AUTO) 286 K/uL (130-430); RED BLOOD CELL COUNT(AUTO) 3.28 MIL/uL (4.2-6.2); RED CELL DISTRIBUTION WIDTH 17.7 % (9.0-15.0); WHITE BLOOD COUNT (AUTO) 6.7 K/uL (4.8-10.8)
[2020-12-09 09:23] LABS: TOTAL BILIRUBIN 9.9 mg/dL (0.0-1.0)
--- NOTE | 2020-12-09 10:45 | NUR ---
GI LAB: PT OFF UNIT TO GI LAB FOR PROCEDURE (ERCP) WITH SIGNED CONSENT, FAMILY MEMBER ( ALVINO) SPOKE WITH VIA PHONE, DISCUSSED PRO'S, CON'S AND REASON FOR PROCEDURE, VERBALIZED UNDERSTANDING, PT IS STABLE, TRANSPORTED VIA HOSPITAL BED, WILL CONT' WITH POC.
[2020-12-09] MEDS ORDERED: METOCLOPRAMIDE HCL 10 MG/2 ML VIAL IVP PRN (12:45)
[2020-12-09] MEDS ORDERED: NALOXONE HCL 0.4 MG/ML AMP (NARCAN) IVP PRN (12:45)
[2020-12-09] MEDS ORDERED: KETOROLAC TROMETHAMINE 30 MG VIAL IVP PRN (12:45)
--- NOTE | 2020-12-09 14:00 | NUR ---
GI LAB: PT RETURNED TO ROOM POST ERCP, GI NURSE STATED PROCEDURE WAS UNSUCCESSFUL, DUE TO INACCESSIBILITY AND INABILITY TO ADVANCE SCOPE, PT IS A/A/OX4, VSS, NO C/O PAIN OR DISCOMFORT, WILL CONT' WITH POC.
[2020-12-09 15:29] VITALS: BP_SYST 148
--- NOTE | 2020-12-09 15:42 | NUR ---
FOLLOWED THE [facility] CM FÉLIX HAINESOVAL TO FAX PAPERWORKS (F/S, H/P, OPERATIVE GI NOTES OF DR ORDONEZ, LABS, COVID RESULT) TO [facility], ATTENTION ADMITTING DEPT.
--- NOTE | 2020-12-09 18:10 | NUR ---
CLOSING NOTES: SPOKE WITH WESTON TALBERT REGARDING PT'S DIET, RECEIVED ORDER FOR CLEAR LIQUID, PT IS A/A/OX4, NO CHANGES IN CONDITION NOTED, NEEDS MET, CALL LIGHT WITHIN REACH, WILL CONT' TO MONITOR AND ASSESS.
--- NOTE | 2020-12-09 19:15 | NUR ---
OPENING NOTES RECEIVED PATIENT RESTING, NO SIGNS OF DISTRESS NOTED AT THIS TIME. PATIENT BACK TO BED AFTER AMBULATING WITH STEADY GAIT TO RESTROOM. FALL, ASPIRATION, SAFETY, AND RESPIRATORY PRECAUTIONS IN PLACE. DISCUSSED PLAN OF CARE WITH PATIENT. CALL LIGHT WITHIN REACH, PATIENT DEMONSTRATES PROPER USAGE OF CALL LIGHT, BED ALARM ON, BED AT LOWEST POSITION, BED LOCKED. WILL CONTINUE TO MONITOR.
--- NOTE | 2020-12-09 19:51 | NUR ---
FOLLOW UP ON TRANSFER TO HIGHER LEVEL OF CARE CALLED AFTER HOURS CM FROM HCP AND SPOKE WITH AYAH AND SHE WILL LOOK INTO THIS CASE AND FOLLOW UP WITH US LATER REGARDING ANY BED.
[2020-12-09 20:00] VITALS: BP_SYST 146
[2020-12-10 01:06] VITALS: BP_SYST 143
--- NOTE | 2020-12-10 01:06 | NUR ---
SPOKE TO DR. GABRIEL AND CLARIFIED ORDERS FOR PAIN MEDICATION OF MORPHINE 2MG IVP, RECEIVED OKAY TO PROVIDE MORPHINE 2MG IVP FOR SEVERE PAIN AT THIS TIME. NO CHANGE IN ORDERS.
[2020-12-10] MEDS: MORPHINE 2 MG/ML INJ. SYRINGE IVP PRN ×3 (01:10→21:09)
--- NOTE | 2020-12-10 06:53 | NUR ---
CLOSING NOTES PATIENT RESTING, NO SIGNS OF DISTRESS NOTED AT THIS TIME. FALL, ASPIRATION, SAFETY, AND RESPIRATORY PRECAUTIONS IN PLACE THROUGHOUT SHIFT. CALL LIGHT WITHIN REACH, PATIENT DEMONSTRATED PROPER USAGE OF CALL LIGHT, BED ALARM ON, BED AT LOWEST POSITION, BED LOCKED. ALL NEEDS MET THROUGHOUT SHIFT. WILL ENDORSE CARE TO ONCOMING SHIFT.
--- NOTE | 2020-12-10 07:30 | NUR ---
initial note PATIENT IS AWAKE, AND ORIENTED, BREAHTING EVEN, NO SIGNS OF DISTRESS NOTED, PATIENT DENIES PAIN OR DISCOMFORT AT THIS TIME. UPDATED PATIENT OF THE STATUS OF TRANSFER,PATIENT VERBALIZED UNDERSTANDING. CALL LIGHT WITHIN REACH, , BED AT LOWEST POSITION, BED LOCKED. WILL CONTINUE TO MONITOR
[2020-12-10 08:00] VITALS: BP_SYST 137
[2020-12-10] MEDS: NITROFURANTOIN MONOHYD/M-CRYST 100 MG CAPSULE (MacroBID) PO SCH ×2 (09:25→20:18)
[2020-12-10] MEDS: amLODIPine BESYLATE 5 MG TABLET PO SCH (09:30)
--- NOTE | 2020-12-10 10:00 | NUR ---
UPDATE FAMILY UPDATED FAMILY ABOUT THE PLAN OF CARE AND THE STATUS OF TRANSFER. STILL WAITING FOR A BED
[2020-12-10 10:16] LABS: BASOPHILS # (AUTO) 0.1 K/uL (0.0-0.2); BASOPHILS % (AUTO) 0.9 % (0.0-2.0); EOSINOPHILS # (AUTO) 0.2 K/uL (0.0-0.4); EOSINOPHILS % (AUTO) 3.8 % (0.0-4.0); HEMATOCRIT 31.5 % (36-54); HEMOGLOBIN 10.6 g/dL (14.0-18.0); LYMPHOCYTES # (AUTO) 0.8 K/uL (1.0-5.5); LYMPHOCYTES % (AUTO) 12.4 % (20.5-51.5); MEAN CORPUSCULAR HEMOGLOBIN 34 pg (27-31); MEAN CORPUSCULAR HGB CONC 34 % (32-36); MEAN CORPUSCULAR VOLUME 100 fL (79.0-98.0); MONOCYTES # (AUTO) 0.6 K/uL (0.0-1.0); MONOCYTES % (AUTO) 8.9 % (1.7-9.3); NEUTROPHILS # (AUTO) 4.7 K/uL (1.8-7.7); PLATELET COUNT (AUTO) 295 K/uL (130-430); RED BLOOD CELL COUNT(AUTO) 3.14 MIL/uL (4.2-6.2); WHITE BLOOD COUNT (AUTO) 6.4 K/uL (4.8-10.8)
[2020-12-10 10:22] LABS: ALANINE AMINOTRANSFERASE 173 U/L (12-78); ALBUMIN 2.9 g/dL (3.4-4.8); ANION GAP 10 (5-15); ASPARTATE AMINOTRANSFERASE 65 U/L (10-37); CALCIUM 8.4 mg/dL (8.4-11.0); CHLORIDE 102 mmol/L (98-107); CREATININE 0.88 mg/dL (0.55-1.30); GLUCOSE 139 mg/dL (70-99); POTASSIUM 3.2 mmol/L (3.5-5.1); SODIUM SERUM 139 mmol/L (136-145); TOTAL BILIRUBIN 11.4 mg/dL (0.0-1.0); UREA NITROGEN, BLOOD 8 mg/dL (8-21)
[2020-12-10 12:46] VITALS: BP_SYST 122
--- NOTE | 2020-12-10 15:36 | NUR ---
Louie Chapman. No bed at [facility] as of writing
[2020-12-10 16:28] VITALS: BP_SYST 124
--- NOTE | 2020-12-10 18:30 | NUR ---
closing note patient is alert and oriented x 4, on room air, breathing even, no distress noted. denies pain and discomfort, IV L wrist infusing well. patient is able to ambulate, encouraged patient to use the call light when assistance is needed. updated patient of the status of his transfer. patient verbalized understanding. call light in reach, safety maintained. endorse to [employer]
--- NOTE | 2020-12-10 19:30 | NUR ---
OPENING NOTES RECEIVED REPORT FROM DAY SHIFT RN. PT RESTING IN BED, ALERT & ORIENTED X4. BREATHING EVEN AND UNLABORED TO ROOM AIR. NO SIGNS OF RESPIRATORY DISTRESS NOTED. NO S/S OF ACUTE DISTRESS NOTED. IV ON LEFT FA 22G INTACT, IVF RUNNING ORDERED RATE. PT TOLERATING WELL. CALL LIGHT WITHIN REACH. BED LOCKED IN LOWEST POSITION. SAFETY AND FALL PRECAUTIONS ARE IN PLACE. WILL MONITOR.
[2020-12-10 20:00] VITALS: BP_SYST 157
[2020-12-10] MEDS: D5/0.45 NS 1,000 ML IV SCH (20:18)
[2020-12-11 00:12] VITALS: BP_SYST 140
[2020-12-11] MEDS: MORPHINE 2 MG/ML INJ. SYRINGE IVP PRN ×3 (03:43→20:18)
--- NOTE | 2020-12-11 06:39 | NUR ---
CLOSING NOTES PT RESTING IN BED. BREATHING EVEN AND UNLABORED TO ROOM AIR. NO SIGNS OF RESPIRATORY DISTRESS NOTED. PT DENIES ANY PAIN AT THIS TIME. IV ON LEFT FA 22G INTACT, IVF RUNNING ORDERED RATE. PT TOLERATING WELL. CALL LIGHT WITHIN REACH. BED LOCKED IN LOWEST POSITION. SAFETY AND FALL PRECAUTIONS ARE IN PLACE. ALL NEEDS ARE MET THROUGHOUT SHIFT. WILL MONITOR UNTIL ENDORSE TO DAY SHIFT RN.
--- NOTE | 2020-12-11 08:00 | NUR ---
initial note patient is awake and alert, on room air , breathing even, no acute distress noted, patient is jandunce, complaint of abd pain , 8/10. give morphine. updated patient on his plan of care, patient verbalized understanding. encouraged patient to use the call light, bed at lowest position. safety maintained.
[2020-12-11 12:30] VITALS: BP_SYST 136
--- NOTE | 2020-12-11 14:58 | NUR ---
Dietitian Recommendations * Recommend continuing clear liquid diet (ONS Ensure Clear TID comes standard w/ diet -- provides 720 kcal/day, 24 gm protein/day) * Encourage increase PO intakes LP, RD Please refer to Nutrition Assessment for details. Addendum: 12/11/20 at [address] Amended: Links added.
--- NOTE | 2020-12-11 15:42 | NUR ---
[facility]/ ms nuneskiara mayaoval was called, re: bed status at [facility]. Per LEIGHANN Chapman, no bed available at [facility].
[2020-12-11] MEDS: NITROFURANTOIN MONOHYD/M-CRYST 100 MG CAPSULE (MacroBID) PO SCH ×2 (16:30→20:18)
[2020-12-11] MEDS: amLODIPine BESYLATE 5 MG TABLET PO SCH (16:32)
[2020-12-11 16:59] VITALS: BP_SYST 131
--- NOTE | 2020-12-11 18:28 | NUR ---
closing note patient is alert and oriented, on the phone with family. no acute distress noted. patient iv patent infusing, last pain med give 1048, pain is managed, all needs been met during shift, endorse to shift leader
--- NOTE | 2020-12-11 19:40 | NUR ---
INITIAL NOTE PATIENT IS STABLE AND LAYING IN BED. NO S/S OF RESPIRATORY DISTRESS NOTED. CALL LIGHT IN REACH. PATIENT SUCCESSFULLY DEMONSTRATES USAGE OF CALL LIGHT. BED IS LOCKED, ALARMED, AND AT THE LOWEST POSITION. FALL, SAFETY, ASPIRATION, AND RESPIRATORY PRECAUTIONS WILL BE IN PLACE THROUGHOUT THE SHIFT. PLAN OF CARE IS DISCUSSED WITH PATIENT.
[2020-12-11 19:45] VITALS: BP_SYST 154
[2020-12-11] MEDS: D5/0.45 NS 1,000 ML IV SCH (20:18)
[2020-12-12] VITALS: BP_SYST 151
[2020-12-12] MEDS: MORPHINE 2 MG/ML INJ. SYRINGE IVP PRN ×4 (03:26→23:19)
--- NOTE | 2020-12-12 06:33 | NUR ---
closing note PATIENT IS STABLE AND LAYING IN BED. NO S/S OF RESPIRATORY DISTRESS NOTED. CALL LIGHT IN REACH. BED IS LOCKED, AND AT THE LOWEST POSITION. FALL, SAFETY, ASPIRATION, AND RESPIRATORY PRECAUTIONS HAS BEEN IN PLACE THROUGHOUT THE SHIFT. WILL CONTINUE TO MONITOR UNTIL SBAR REPORT IS ENDORSED TO AM NURSE.
--- NOTE | 2020-12-12 07:45 | NUR ---
OPENING NOTE Patient resting in the bed. No acute distress. AAO x 4. Denied of pain at this time. Skin warm and dry to touch. IV intact to LAC, no redness, no swelling, no drainage. On D5 1/2NS at 60ml/hr, infusing well. Safety measure maintained. Call light within reached. Bed locked in low position, side rails up, bed alarm on. Will continue to monitor.
[2020-12-12] MEDS: NITROFURANTOIN MONOHYD/M-CRYST 100 MG CAPSULE (MacroBID) PO SCH ×2 (09:17→20:49)
[2020-12-12] MEDS: amLODIPine BESYLATE 5 MG TABLET PO SCH (09:17)
--- NOTE | 2020-12-12 09:20 | NUR ---
MORPHINE GIVEN Patient c/o abd pain 01/23, Morphine 2 mg IVP given as ordered. No acute distress. Safety measure maintained. Call light within reached. Continue to monitor.
--- NOTE | 2020-12-12 11:01 | NUR ---
MAYI MILLIGAN (COVERING FOR DR. BELLO) IN THE UNIT. INFORMED TO DR. GAY, DR. BELLO ORDERED TRANSFER TO [facility] FOR HIGHER LEVEL OF CARE. HOWEVER, STILL NO BED AVAILABLE AT THIS TIME. POTASSIUM 3.2 ON 12/10/2020 AND NO LAB FOR [address] MIRZA ORDERED CBC AND BMP. NOTED AND CARRIED OUT.
[2020-12-12 11:59] LABS: BASOPHILS # (AUTO) 0.1 K/uL (0.0-0.2); EOSINOPHILS # (AUTO) 0.4 K/uL (0.0-0.4); EOSINOPHILS % (AUTO) 5.9 % (0.0-4.0); HEMATOCRIT 31.3 % (36-54); HEMOGLOBIN 10.6 g/dL (14.0-18.0); LYMPHOCYTES # (AUTO) 1.1 K/uL (1.0-5.5); LYMPHOCYTES % (AUTO) 16.1 % (20.5-51.5); MEAN CORPUSCULAR HEMOGLOBIN 34 pg (27-31); MEAN CORPUSCULAR HGB CONC 34 % (32-36); MEAN CORPUSCULAR VOLUME 99 fL (79.0-98.0); MONOCYTES # (AUTO) 0.9 K/uL (0.0-1.0); MONOCYTES % (AUTO) 12.9 % (1.7-9.3); NEUTROPHILS # (AUTO) 4.3 K/uL (1.8-7.7); NEUTROPHILS % (AUTO) 64.1 % (40.0-70.0); PLATELET COUNT (AUTO) 329 K/uL (130-430); RED BLOOD CELL COUNT(AUTO) 3.15 MIL/uL (4.2-6.2); RED CELL DISTRIBUTION WIDTH 17.2 % (9.0-15.0); WHITE BLOOD COUNT (AUTO) 6.7 K/uL (4.8-10.8)
[2020-12-12 12:12] LABS: ANION GAP 12 (5-15); CALCIUM 8.4 mg/dL (8.4-11.0); CHLORIDE 102 mmol/L (98-107); CREATININE 0.65 mg/dL (0.55-1.30); GLUCOSE 116 mg/dL (70-99); SODIUM SERUM 139 mmol/L (136-145); UREA NITROGEN, BLOOD 8 mg/dL (8-21)
[2020-12-12] MEDS: D5/0.45 NS 1,000 ML IV SCH (13:34)
--- NOTE | 2020-12-12 13:34 | NUR ---
NEW IVF D5 1/2NS CHANGED Patient resting in the bed. No acute distress. Safety measure maintained. Bed locked in low position, side rails up, bed alarm on. Continue to monitor.
--- NOTE | 2020-12-12 13:46 | NUR ---
PAGED PAGED MAYI MG AT [phone] SPOKE WITH BLANK.
--- NOTE | 2020-12-12 14:30 | NUR ---
HIGH ALERT NOTE: Called Ruslan Perkins back at [phone] identified within the medical roster to verify physician authenticity.
[2020-12-12 14:44] VITALS: BP_SYST 136
[2020-12-12] MEDS ORDERED: POTASSIUM CHLORIDE 20 MEQ TAB.PRT.SR PO ONE (14:45)
--- NOTE | 2020-12-12 16:20 | NUR ---
RECEIVED THE CALL FROM HEALTH DIVISIONAL HUMAN RESOURCES DIRECTOR INSURANCE, AYAH AWARE TRANSFER TO [facility] BUT STILL NO BED AVAILABLE. WILL CALL ME WHEN BED IS AVAILABLE.
--- NOTE | 2020-12-12 17:48 | NUR ---
SEEN AND EXAMINED BY MARGARITA MUELLER WITH ORDER RECEIVED.
[2020-12-12 18:15] VITALS: BP_SYST 159
--- NOTE | 2020-12-12 18:50 | NUR ---
CLOSING NOTE Patient resting in the bed. No acute distress. PRN pain med given as needed as ordered. Skin warm and dry to touch. IV intact to LAC, no redness, no swelling, no drainage. On D5 1/2NS at 60ml/hr, infusing well. Patient ambulated to bathroom in steady gait. Safety measure maintained. Call light within reached. Bed locked in low position, side rails up, bed alarm on. Will endorse to night nurse.
[2020-12-12 20:00] VITALS: BP_SYST 152
[2020-12-13] VITALS: BP_SYST 153
[2020-12-13] MEDS: D5/0.45 NS 1,000 ML IV SCH ×2 (04:20→19:35)
[2020-12-13] MEDS: MORPHINE 2 MG/ML INJ. SYRINGE IVP PRN ×3 (04:25→22:55)
[2020-12-13 07:15] LABS: ANION GAP 11 (5-15); CALCIUM 8.6 mg/dL (8.4-11.0); CHLORIDE 102 mmol/L (98-107); CREATININE 0.59 mg/dL (0.55-1.30); GLUCOSE 114 mg/dL (70-99); POTASSIUM 3.8 mmol/L (3.5-5.1); SODIUM SERUM 137 mmol/L (136-145); UREA NITROGEN, BLOOD 9 mg/dL (8-21)
--- NOTE | 2020-12-13 07:32 | NUR ---
OPENING NOTE Patient resting in the bed. No acute distress. AAO x 4. Denied of pain at this time. Skin warm and dry to touch. IV intact to LFA, no redness, no swelling, no drainage. On D5 1/2NS at 60ml/hr, infusing well. SL intact to LAC, no redness, no swelling, patent. Discussed the safety issue, use call light when needs help, and plan of care, verbally understanding. Safety measure maintained. Call light within reached. Bed locked in low position, side rails up. Refused bed alarm, risk and benefit explained, verbally understanding. Will continue to monitor.
[2020-12-13 07:42] LABS: BASOPHILS # (AUTO) 0.1 K/uL (0.0-0.2); BASOPHILS % (AUTO) 1.2 % (0.0-2.0); EOSINOPHILS # (AUTO) 0.5 K/uL (0.0-0.4); EOSINOPHILS % (AUTO) 6.8 % (0.0-4.0); HEMATOCRIT 28.9 % (36-54); HEMOGLOBIN 9.9 g/dL (14.0-18.0); LYMPHOCYTES # (AUTO) 1.2 K/uL (1.0-5.5); LYMPHOCYTES % (AUTO) 17.6 % (20.5-51.5); MEAN CORPUSCULAR HEMOGLOBIN 34 pg (27-31); MEAN CORPUSCULAR HGB CONC 34 % (32-36); MEAN CORPUSCULAR VOLUME 99 fL (79.0-98.0); MONOCYTES # (AUTO) 0.8 K/uL (0.0-1.0); MONOCYTES % (AUTO) 10.7 % (1.7-9.3); NEUTROPHILS # (AUTO) 4.5 K/uL (1.8-7.7); NEUTROPHILS % (AUTO) 63.7 % (40.0-70.0); PLATELET COUNT (AUTO) 330 K/uL (130-430); RED BLOOD CELL COUNT(AUTO) 2.92 MIL/uL (4.2-6.2); RED CELL DISTRIBUTION WIDTH 17.1 % (9.0-15.0); WHITE BLOOD COUNT (AUTO) 7.1 K/uL (4.8-10.8)
[2020-12-13 07:50] VITALS: BP_SYST 153
[2020-12-13] MEDS: amLODIPine BESYLATE 5 MG TABLET PO SCH (09:29)
--- NOTE | 2020-12-13 10:02 | NUR ---
BATHROOM Patient ambulated to bathroom in steady gait. Safety measure maintained. Back to bed and sitting at the edge of the bed. Call light within reached. Continue to monitor.
[2020-12-13] MEDS ORDERED: MORPHINE 2 MG/ML INJ. SYRINGE IVP PRN (12:30)
[2020-12-13 12:35] VITALS: BP_SYST 149
--- NOTE | 2020-12-13 12:35 | NUR ---
SEEN AND EXAMINED BY MAYI MILLIGAN. REPORTED TO DR. GAY, THERE ARE 2 SAME DOSAGE OF MORPHINE FOR MODERATE AND SEVERE PAIN. DR. GAY ORDERED MORPHINE 1 MG IVP Q 4 HR FOR MODERATE PAIN. ORDER NOTED AND CARRIED OUT.
--- NOTE | 2020-12-13 16:25 | NUR ---
RECEIVED THE CALL FROM [facility], LISY REQUESTED TO FAX THE COVID TEST. PER LISY, SHE HAD THE COVID TEST RESULT ON 12/06, IT ONLY GOOD FOR 72HR, NEEDS ONE ON 12/09/2020. THERE IS NO BED AVAILABLE AT THIS TIME. TOLD LISY WILL ORDER ONE AND WILL FAX THE RESULT TO [phone].
[2020-12-13 16:33] VITALS: BP_SYST 147
--- NOTE | 2020-12-13 17:17 | NUR ---
COVID SPECIMEN SENT TO LAB
[2020-12-13 19:37] VITALS: BP_SYST 154
--- NOTE | 2020-12-13 19:45 | NUR ---
OPENING NOTES RECEIVED PATIENT IN BED AAO X4. BREATHING UNLABORED ON ROOM AIR. NO C/O PAIN AT THIS TIME. IVF INFUSING WITH IV LINE INTACT AND PATENT. BED IN LOWEST LOCKED POSITION WITH ALARM ON. CALL LIGHT WITH IN REACH. VITAL SIGNS STABLE.
--- NOTE | 2020-12-13 21:30 | NUR ---
[facility] RECEIVED CALL FROM [facility] IS AVAILABLE NOW AT [facility]. PATIENT NOTIFIED AND AGREED TO BE TRANSFERRED TONIGHT. [facility] WILL CALL FOR TRANSPORTATION PER DELIA.
[2020-12-13 21:55] VITALS: BP_SYST 154
--- NOTE | 2020-12-13 21:59 | NUR ---
NOTIFICATION PATIENT ALVINO NOTIFIED OF PATIENT TRANSFER.
--- NOTE | 2020-12-13 22:35 | NUR ---
REPORT REPORT GIVEN TO LYNDON PRESSLEY AT [facility].
--- NOTE | 2020-12-13 23:15 | NUR ---
DISCHARGE PATIENT LEFT FACILITY IN STABLE CONDITION ACCOMPANIED BY [facility].
== END 2020-12-13 23:15 | disposition short-term general hospital (02) | DRG 445 ==
LOC: SED 14:21 → SMU 16:28
PROVIDERS: ADMIT Internal Medicine Hospice and Palliative Medicine; ATTEND Internal Medicine Hospice and Palliative Medicine
PROC: 0FJB8ZZ Inspection of Hepatobiliary Duct, Via Natural or Artificial Opening Endoscopic (ICD-10-PCS; principal; 2020-12-09 10:30)
DX: K83.1 Obstruction of bile duct (principal); R17 Unspecified jaundice; D64.9 Anemia, unspecified; E87.5 Hyperkalemia; M10.9 Gout, unspecified; R73.03 Prediabetes; I10 Essential (primary) hypertension; Z20.822 Contact with and (suspected) exposure to COVID-19; R74.01 Elevation of levels of liver transaminase levels; F10.20 Alcohol dependence, uncomplicated; Y90.9 Presence of alcohol in blood, level not specified; Z88.5 Allergy status to narcotic agent; Z90.49 Acquired absence of other specified parts of digestive tract; Z79.899 Other long term (current) drug therapy
CPT/HCPCS: 36415; 71045; 71250-TC; 74181; 76000; 76376; 76700-TC; 78226; 80048; 80053; 80074; 80076; 81003; 83690; 83880; 84484; 85025; 85610-TC; 93005; 96361; 96374; 99285; A9537; C1769; J0360; J1610; J2270; J2704; J7120; Q9967